=== PATIENT | male | born 1980 | race Caucasian/White ===

== ENCOUNTER 2024-03-04 16:24 | Inpatient (IN) ==
[2024-03-04 19:10] LABS: ABS Basophils 0.1 10^3/uL (0.0-0.1); ABS Eosinophils 0.1 10^3/uL (0.0-0.5); ABS Lymphocytes 0.7 10^3/uL (1.0-4.8); ABS Monocytes 1.4 10^3/uL (0.0-1.1); ABS Neutrophils 8.5 10^3/uL (1.5-7.6); ABS Nucleated RBC 0.02 10^3/ul; Hematocrit 36.2 % (38-53); Hemoglobin 12.4 g/dL (13.2-16.3); Lymphocyte % 6.5 %; Mean Corpuscular Hemoglobin 30.5 pg (27-33); Mean Corpuscular Hgb Conc 34.2 g/dL (31-36); Mean Corpuscular Volume 89.2 fL (80-97); Mean Platelet Volume 6.8 fL (7.5-11.2); Nucleated Red Blood Cells % 0.2 %/100WBC (0.0-0.8); Platelet Count 532 10^3/uL (150-450); Red Blood Count 4.06 10^6/uL (4.06-5.63); Red Cell Distribution Width 14.4 % (12-17); White Blood Count 10.8 10^3/uL (3.6-10.2)
[2024-03-04 19:59] LABS: ALT 11 U/L (7-52); AST 13 U/L (13-39); Albumin 3.7 g/dL (3.2-5.2); Albumin/Globulin Ratio 1.5 (1-3); Alcohol, S < 13 mg/dL (<13); Alkaline Phosphatase 74 U/L (35-149); Anion Gap 8 mmol/L (2-16); Blood Urea Nitrogen 9 mg/dL (6-24); CO2 Carbon Dioxide 28 mmol/L (22-32); Calcium 8.7 mg/dL (8.6-10.3); Chloride 99 mmol/L (101-111); Creatine Kinase 239 U/L (10-223); Globulin 2.5 g/dL (2-4); Glucose 111 mg/dL (70-100); Potassium 3.7 mmol/L (3.5-5.0); Sodium 135 mmol/L (135-145); Total Bilirubin 0.6 mg/dL (0.2-1.0); Total Protein 6.2 g/dL (6.4-8.9); eGFR CKD-EPI 110.5 (>60)
[2024-03-04] MEDS: Lactated Ringers 1000 ml BAG 1,000 ML IV ONE (22:01)
[2024-03-04 22:09] LABS: Urine Appearance Clear; Urine Bilirubin Negative (Negative); Urine Blood 2+ (Negative); Urine Color Yellow; Urine Glucose Negative (Negative); Urine Ketones Negative (Negative); Urine Nitrite Negative (Negative); Urine Protein Trace (Negative); Urine Specific Gravity 1.018 (1.002-1.030); Urine Urobilinogen 3+ (Negative); Urine pH 6.5 (5.0-8.0)
[2024-03-04 22:10] LABS: Urine Bacteria Absent /HPF (Absent); Urine Red Blood Cell 3+(>10/hpf) /HPF (0-Trace); Urine White Blood Cell Trace(0-5/hpf) /HPF (0-Trace)
[2024-03-04 22:27] LABS: Urine Benzodiazepine Screen None Detected (None Detect); Urine Cannabinoids Screen None Detected (None Detect); Urine Opiates Screen None Detected (None Detect)
[2024-03-05 00:14] LABS: Acetaminophen < 15 mcg/mL; Salicylate < 2.50 mg/dL (<30)
[2024-03-05 00:30] LABS: TSH Ultra Thyroid Stim Horm 0.71 mcIU/mL (0.34-5.60)
[2024-03-05] MEDS: fentaNYL 100 mcg/2 ml 50 MCG/ML VIAL IV SLOW PU ONE (03:44)
[2024-03-05] MEDS: Morphine 2 MG/ML SYRINGE IV PRN (04:34)
[2024-03-05] MEDS: Enoxaparin 40 MG/0.4 ML SYR SUBCUT SCH (05:45)
[2024-03-05 07:42] LABS: ABS Eosinophils 0.1 10^3/uL (0.0-0.5); ABS Lymphocytes 0.8 10^3/uL (1.0-4.8); ABS Monocytes 1.3 10^3/uL (0.0-1.1); ABS Neutrophils 6.4 10^3/uL (1.5-7.6); Eosinophil % 1.7 %; Hematocrit 36.3 % (38-53); Hemoglobin 12.3 g/dL (13.2-16.3); Lymphocyte % 9.5 %; Mean Corpuscular Hemoglobin 30.4 pg (27-33); Mean Corpuscular Hgb Conc 33.8 g/dL (31-36); Mean Corpuscular Volume 89.8 fL (80-97); Mean Platelet Volume 6.8 fL (7.5-11.2); Platelet Count 536 10^3/uL (150-450); Red Blood Count 4.05 10^6/uL (4.06-5.63); Red Cell Distribution Width 14.2 % (12-17); White Blood Count 8.7 10^3/uL (3.6-10.2)
[2024-03-05 08:03] LABS: Albumin 3.7 g/dL (3.2-5.2); Albumin/Globulin Ratio 1.6 (1-3); Calcium 8.8 mg/dL (8.6-10.3); Creatinine, Serum 0.76 mg/dL (0.67-1.17); Globulin 2.3 g/dL (2-4); Magnesium 1.9 mg/dL (1.9-2.7); Potassium 4.1 mmol/L (3.5-5.0); Total Bilirubin 0.7 mg/dL (0.2-1.0); eGFR CKD-EPI 112.3 (>60)
[2024-03-05] MEDS: Polyethylene Glycol 3350 17 GM PACKET PO SCH (10:19)
[2024-03-05] MEDS: Cyanocobalamin INJ 1,000 MCG/ML VIAL 1 ML VIAL IM ONE (11:33)
[2024-03-05] MEDS: Senna TAB 8.6 mg TAB PO SCH (22:52)
[2024-03-06 07:24] LABS: ABS Basophils 0.1 10^3/uL (0.0-0.1); ABS Eosinophils 0.3 10^3/uL (0.0-0.5); ABS Lymphocytes 1.5 10^3/uL (1.0-4.8); ABS Monocytes 0.8 10^3/uL (0.0-1.1); ABS Neutrophils 3.8 10^3/uL (1.5-7.6); Eosinophil % 5.1 %; Hematocrit 35.2 % (38-53); Hemoglobin 11.8 g/dL (13.2-16.3); Lymphocyte % 23.2 %; Mean Corpuscular Hemoglobin 30.1 pg (27-33); Mean Corpuscular Hgb Conc 33.6 g/dL (31-36); Mean Corpuscular Volume 89.5 fL (80-97); Mean Platelet Volume 7.1 fL (7.5-11.2); Nucleated Red Blood Cells % 0.1 %/100WBC (0.0-0.8); Platelet Count 558 10^3/uL (150-450); Red Blood Count 3.93 10^6/uL (4.06-5.63); White Blood Count 6.5 10^3/uL (3.6-10.2)
[2024-03-06 07:47] LABS: Albumin 3.6 g/dL (3.2-5.2); Albumin/Globulin Ratio 1.5 (1-3); Calcium 8.8 mg/dL (8.6-10.3); Creatinine, Serum 0.74 mg/dL (0.67-1.17); Globulin 2.4 g/dL (2-4); Potassium 4.3 mmol/L (3.5-5.0); Total Bilirubin 0.5 mg/dL (0.2-1.0); eGFR CKD-EPI 113.2 (>60)
[2024-03-06] MEDS: Cyanocobalamin INJ 1,000 MCG/ML VIAL 1 ML VIAL IM ONE (10:07)
[2024-03-06 14:42] LABS: Urine Benzodiazepine Screen None Detected (None Detect); Urine Cannabinoids Screen None Detected (None Detect); Urine Opiates Screen Presumptive Positive (None Detect)
[2024-03-06 16:18] LABS: Urine Buprenorphine Screen None Detected (None Detect); Urine Fentanyl Screen None Detected (None Detect); Urine Hydrocodone Screen None Detected (None Detect)
[2024-03-07 07:08] LABS: ABS Eosinophils 0.4 10^3/uL (0.0-0.5); ABS Lymphocytes 1.3 10^3/uL (1.0-4.8); ABS Monocytes 0.8 10^3/uL (0.0-1.1); Eosinophil % 6.8 %; Hematocrit 33.6 % (38-53); Hemoglobin 11.5 g/dL (13.2-16.3); Lymphocyte % 24.2 %; Mean Corpuscular Hemoglobin 30.2 pg (27-33); Mean Corpuscular Hgb Conc 34.1 g/dL (31-36); Mean Corpuscular Volume 88.5 fL (80-97); Mean Platelet Volume 7.1 fL (7.5-11.2); Platelet Count 543 10^3/uL (150-450); Red Cell Distribution Width 14.2 % (12-17); White Blood Count 5.6 10^3/uL (3.6-10.2)
[2024-03-07 07:42] LABS: Calcium 8.3 mg/dL (8.6-10.3); Creatinine, Serum 0.75 mg/dL (0.67-1.17); Potassium 4.4 mmol/L (3.5-5.0); eGFR CKD-EPI 112.7 (>60)
[2024-03-07] MEDS ORDERED: Naloxone 0.4 mg VIAL 0.4 mg/ml 1 ml VIAL IV PRN (10:23)
[2024-03-07] MEDS ORDERED: Ondansetron 4 mg VIAL 2 MG/ML 2 ml VIAL IV PRN (10:23)
[2024-03-07] MEDS ORDERED: Midazolam 2 mg/2 ml VIAL 1 mg/ml 2 ml VIAL (2 mg) ONE (10:30)
[2024-03-07] MEDS ORDERED: NS 0.45% 1000 ml BAG 1,000 ML IV SCH (11:00)
[2024-03-07] MEDS ORDERED: Propofol 10 MG/ML 20 ML BTL ONE (11:36)
[2024-03-07] MEDS ORDERED: Rocuronium 50 mg VIAL 10 mg/ml 5 ml VIAL (50 mg) ONE (12:10)
[2024-03-07] MEDS ORDERED: fentaNYL 100 mcg/2 ml 50 MCG/ML VIAL ONE (12:11)
[2024-03-07] MEDS ORDERED: Lidocaine 2% PF 5 ML VIAL ONE (12:11)
[2024-03-07] MEDS ORDERED: Dexamethasone IV 4 MG/ML VIAL 1 ml VIAL ONE ×2 (12:11)
[2024-03-07] MEDS ORDERED: Ondansetron 4 mg VIAL 2 MG/ML 2 ml VIAL ONE (12:11)
[2024-03-07] MEDS ORDERED: Sulfur Hexaflouride MICROSPHR 25 MG VIAL IV PRN (13:43)
[2024-03-07] MEDS ORDERED: Metoprolol Tartrate 5 mg VIAL 5 ml VIAL (1 mg/ml) ONE (16:28)
[2024-03-07] MEDS ORDERED: Atropine 0.1 MG/ML 10 ml SYR (1 mg) ONE (16:28)
[2024-03-07] MEDS ORDERED: DOBUTamine 2000 MCG/ML IVPREMX 500 MG/250 ML BAG IV ONE (16:28)
[2024-03-07] MEDS: Heparin 5000 UNITS/ML 1 mL VIAL SUBCUT ONE (18:29)
[2024-03-08] MEDS: levETIRAcetam 1000MG IVPREMIX 1,000 MG/100 ML BAG IVPB ONE (10:12)
[2024-03-08] MEDS: Lactated Ringers 1000 ml BAG 1,000 ML IV SCH (12:02)
[2024-03-08] MEDS ORDERED: Lidocaine 2% PF 5 ML VIAL ONE (13:17)
[2024-03-08] MEDS ORDERED: Ondansetron 4 mg VIAL 2 MG/ML 2 ml VIAL ONE (13:17)
[2024-03-08] MEDS ORDERED: Dexamethasone IV 4 MG/ML VIAL 1 ml VIAL ONE (13:17)
[2024-03-08] MEDS ORDERED: Propofol 10 MG/ML 20 ML BTL ONE (13:17)
[2024-03-08] MEDS ORDERED: fentaNYL 250 mcg/5 ml 50 MCG/ML 5 ml VIAL (250 MCG) ONE (13:18)
[2024-03-08] MEDS ORDERED: Rocuronium 50 mg VIAL 10 mg/ml 5 ml VIAL (50 mg) ONE ×2 (13:18→19:11)
[2024-03-08] MEDS ORDERED: Midazolam 2 mg/2 ml VIAL 1 mg/ml 2 ml VIAL (2 mg) ONE (13:18)
[2024-03-08] MEDS ORDERED: ceFAZolin 2 GM PREMIX 2 GM/50 ML BAG ONE (13:53)
[2024-03-08] MEDS ORDERED: Lidocaine 1% w EPI 1:100,000 MDV 20 ML VIAL ONE (15:05)
[2024-03-08] MEDS ORDERED: Bupivacaine 0.25% SDV 30 ML ONE (15:39)
[2024-03-08] MEDS ORDERED: Bupivacaine 0.25% EPI 200,000 30 ML SDV ONE (15:40)
[2024-03-08] MEDS ORDERED: KETAMINE HCL 10 MG/ML 20 ml VIAL (200 MG) ONE (15:48)
[2024-03-08] MEDS ORDERED: HYDROmorphone 0.5 MG/0.5 ML SYRINGE ONE ×2 (16:01→16:30)
[2024-03-08] MEDS ORDERED: fentaNYL 100 mcg/2 ml 50 MCG/ML VIAL ONE ×3 (16:59→22:58)
[2024-03-08] MEDS ORDERED: Sevoflurane BOTTLE ONE (17:28)
[2024-03-08] MEDS ORDERED: Dexmedetomidine 200 mcg/2 ml 2 ml VIAL (200 mcg) ONE (18:48)
[2024-03-08] MEDS ORDERED: ceFAZolin VIAL VIAL ONE (19:45)
[2024-03-08] MEDS ORDERED: ceFAZolin VIAL 2 GM in NS 0.9% 100 ml BAG 100 ML IVPB SCH (23:00)
[2024-03-08] MEDS: fentaNYL 100 mcg/2 ml 50 MCG/ML VIAL IV PRN (23:04)
[2024-03-09] MEDS ORDERED: fentaNYL 100 mcg/2 ml 50 MCG/ML VIAL ONE (00:04)
[2024-03-09] MEDS ORDERED: Acetaminophen IV 1 GM/100ML 1,000 MG/100 ML BAG IV ONE (01:23)
[2024-03-09] MEDS ORDERED: Morphine 4 MG/ML VIAL (1 ml) ONE (01:23)
[2024-03-09] MEDS: Acetaminophen IV 1 GM/100ML 1,000 MG/100 ML BAG IV ONE (01:25)
[2024-03-09] MEDS: Iohexol 350 (CONTRAST) 500 ML MDV IV ONE (01:39)
[2024-03-09] MEDS: Iodixanol 320 (CONTRAST) 100 ML SDV IV ONE (01:41)
[2024-03-09] MEDS: Lactated Ringers 1000 ml BAG 1,000 ML IV SCH ×2 (02:41→03:28)
[2024-03-09] MEDS: ceFAZolin 2 GM PREMIX 2 GM/50 ML BAG IV SCH (03:24)
[2024-03-09] MEDS: Scopolamine 1 mg/72hr PATCH TRANSDERM ONE (03:59)
[2024-03-09] MEDS: Buffered Lidocaine 1% SYRIN 1 ml INTRADERM ONE (03:59)
[2024-03-09 08:14] LABS: Calcium 7.6 mg/dL (8.6-10.3); Creatinine, Serum 0.88 mg/dL (0.67-1.17); Potassium 4.7 mmol/L (3.5-5.0); eGFR CKD-EPI 107.4 (>60)
[2024-03-09] MEDS: Enoxaparin 40 MG/0.4 ML SYR SUBCUT SCH (08:32)
[2024-03-09 08:44] LABS: ABS Lymphocytes 0.9 10^3/uL (1.0-4.8); ABS Monocytes 1.3 10^3/uL (0.0-1.1); ABS Neutrophils 7.6 10^3/uL (1.5-7.6); Hematocrit 29.7 % (38-53); Hemoglobin 9.6 g/dL (13.2-16.3); Lymphocyte % 9.6 %; Mean Corpuscular Hemoglobin 29.6 pg (27-33); Mean Corpuscular Hgb Conc 32.5 g/dL (31-36); Mean Corpuscular Volume 91.2 fL (80-97); Platelet Count 380 10^3/uL (150-450); Red Blood Count 3.25 10^6/uL (4.06-5.63); Red Cell Distribution Width 14.3 % (12-17); White Blood Count 9.8 10^3/uL (3.6-10.2)
[2024-03-09 14:58] LABS: Hematocrit 25.4 % (38-53); Hemoglobin 8.5 g/dL (13.2-16.3)
[2024-03-09] MEDS: Acetaminophen IV 1 GM/100ML 1,000 MG/100 ML BAG IV SCH (15:15)
[2024-03-09] MEDS: Lidocaine PATCH 5% PATCH TRANSDERM SCH (15:18)
[2024-03-09 19:58] LABS: Hematocrit 26.1 % (38-53); Hemoglobin 8.7 g/dL (13.2-16.3)
[2024-03-09] MEDS: HYDROmorphone 1 MG/1 ML SYRINGE IV PRN (22:41)
[2024-03-10 11:36] LABS: ABS Eosinophils 0.1 10^3/uL (0.0-0.5); ABS Lymphocytes 0.9 10^3/uL (1.0-4.8); ABS Monocytes 1.2 10^3/uL (0.0-1.1); ABS Neutrophils 6.5 10^3/uL (1.5-7.6); ABS Nucleated RBC 0.01 10^3/ul; Eosinophil % 1.1 %; Hematocrit 24.5 % (38-53); Hemoglobin 8.2 g/dL (13.2-16.3); Lymphocyte % 10.3 %; Mean Corpuscular Hemoglobin 29.8 pg (27-33); Mean Corpuscular Hgb Conc 33.4 g/dL (31-36); Mean Corpuscular Volume 89.1 fL (80-97); Mean Platelet Volume 7.4 fL (7.5-11.2); Nucleated Red Blood Cells % 0.1 %/100WBC (0.0-0.8); Platelet Count 466 10^3/uL (150-450); Red Blood Count 2.74 10^6/uL (4.06-5.63); Red Cell Distribution Width 14.3 % (12-17); White Blood Count 8.7 10^3/uL (3.6-10.2)
[2024-03-11 07:18] LABS: ABS Eosinophils 0.3 10^3/uL (0.0-0.5); ABS Lymphocytes 0.8 10^3/uL (1.0-4.8); ABS Monocytes 0.8 10^3/uL (0.0-1.1); ABS Neutrophils 5.3 10^3/uL (1.5-7.6); ABS Nucleated RBC 0.01 10^3/ul; Eosinophil % 4.8 %; Hematocrit 24.7 % (38-53); Hemoglobin 8.4 g/dL (13.2-16.3); Lymphocyte % 11.3 %; Mean Corpuscular Hemoglobin 30.6 pg (27-33); Mean Corpuscular Volume 89.9 fL (80-97); Mean Platelet Volume 7.3 fL (7.5-11.2); Nucleated Red Blood Cells % 0.1 %/100WBC (0.0-0.8); Platelet Count 494 10^3/uL (150-450); Red Blood Count 2.74 10^6/uL (4.06-5.63); Red Cell Distribution Width 14.2 % (12-17); White Blood Count 7.3 10^3/uL (3.6-10.2)
[2024-03-12 06:43] LABS: ABS Basophils 0.1 10^3/uL (0.0-0.1); ABS Eosinophils 0.6 10^3/uL (0.0-0.5); ABS Monocytes 0.6 10^3/uL (0.0-1.1); ABS Neutrophils 3.6 10^3/uL (1.5-7.6); Eosinophil % 10.6 %; Hematocrit 27.4 % (38-53); Lymphocyte % 16.3 %; Mean Corpuscular Hemoglobin 29.4 pg (27-33); Mean Corpuscular Volume 89.2 fL (80-97); Mean Platelet Volume 7.1 fL (7.5-11.2); Platelet Count 639 10^3/uL (150-450); Red Blood Count 3.07 10^6/uL (4.06-5.63); Red Cell Distribution Width 14.3 % (12-17); White Blood Count 5.8 10^3/uL (3.6-10.2)
[2024-03-12 07:47] LABS: Calcium 8.2 mg/dL (8.6-10.3); Creatinine, Serum 0.66 mg/dL (0.67-1.17); Potassium 4.3 mmol/L (3.5-5.0); eGFR CKD-EPI 117.1 (>60)
[2024-03-13 05:54] LABS: ABS Eosinophils 0.5 10^3/uL (0.0-0.5); ABS Monocytes 0.6 10^3/uL (0.0-1.1); Eosinophil % 10.1 %; Hematocrit 27.6 % (38-53); Hemoglobin 9.2 g/dL (13.2-16.3); Lymphocyte % 20.1 %; Mean Corpuscular Hemoglobin 29.9 pg (27-33); Mean Corpuscular Hgb Conc 33.3 g/dL (31-36); Mean Corpuscular Volume 89.8 fL (80-97); Mean Platelet Volume 6.5 fL (7.5-11.2); Platelet Count 756 10^3/uL (150-450); Red Blood Count 3.07 10^6/uL (4.06-5.63); Red Cell Distribution Width 14.3 % (12-17); White Blood Count 5.1 10^3/uL (3.6-10.2)
[2024-03-13 06:33] LABS: Calcium 8.2 mg/dL (8.6-10.3); Creatinine, Serum 0.76 mg/dL (0.67-1.17); Potassium 4.6 mmol/L (3.5-5.0); eGFR CKD-EPI 112.3 (>60)
[2024-03-13 09:50] VITALS: BP 119/75
== END 2024-03-13 13:35 | DRG 493 ==
LOC: ED 16:24 → SUATTDRO 03-05 02:09 → EDHOLD 03-05 02:09 → MED 03-05 15:04 → AA 03-08 23:23 → MED 03-09 02:05
PROVIDERS: ADMIT Student in an Organized Health Care Education/Training Program; ATTEND Hospitalist